=== PATIENT | female | born 1990 | race Caucasian/White ===

== ENCOUNTER 2017-02-27 19:45 | Emergency (ER) | payer OTHER ==
[~2017-02-27] VITALS: Ht 167.6 cm; Wt 89.0 kg
[~2017-02-27 19:45] MED LIST: SULF-154 PO; Z.0.NO CURRENT MEDS
[2017-02-27 19:51] VITALS: BP 100/64; PULSE 78; RESP 18; TEMP 98.4; O2SAT 98
[2017-02-27] MEDS ORDERED: TOPA50TA7 PO (20:12)
[2017-02-27] MEDS ORDERED: Anxiety Med (20:12)
[2017-02-27] MEDS ORDERED: BUTA1CAP PO (20:12)
[2017-02-27] MEDS ORDERED: Depression (20:12)
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
[2017-02-27] MEDS ORDERED: IBUP-232 PO (20:37)
[2017-02-27] MEDS ORDERED: ROBA750T PO (20:37)
== END 2017-02-27 20:50 | disposition home or self-care (01) ==
LOC: PHEFT 19:45
DX: S80.01XA Contusion of right knee, initial encounter (principal); S80.02XA Contusion of left knee, initial encounter; M25.572 Pain in left ankle and joints of left foot; F17.290 Nicotine dependence, other tobacco product, uncomplicated; V43.52XA Car driver injured in collision with other type car in traffic accident, initial encounter; Y93.89 Activity, other specified; Y92.410 Unspecified street and highway as the place of occurrence of the external cause; Y99.8 Other external cause status
CPT/HCPCS: 99283

== ENCOUNTER 2017-04-16 09:43 | Emergency (ER) | payer OTHER ==
[~2017-04-16] VITALS: Ht 167.6 cm; Wt 90.0 kg
[~2017-04-16 09:43] MED LIST changes: +Anxiety Med; +BUTA1CAP PO; +Depression; +IBUP-232 PO; +ROBA750T PO; -SULF-154 PO; +TOPA50TA7 PO; -Z.0.NO CURRENT MEDS
[2017-04-16 09:45] VITALS: BP 106/66; PULSE 96; RESP 20; TEMP 98.6; O2SAT 96
[2017-04-16] MEDS ORDERED: SODIUM CHLOR 0.9% 1000 ML INJ 1,000 ML IV ONE (10:17)
[2017-04-16] MEDS ORDERED: KETOROLAC TROMETHAMINE 30 MG/ML (IVP) VIAL IVP ONE (10:30)
[2017-04-16] MEDS ORDERED: PROCHLORPERAZINE INJ 10 MG/2 ML VIAL IVP ONE (10:30)
[2017-04-16] MEDS ORDERED: diphenhydrAMINE HCL 50 MG/ML VIAL IVP ONE (10:30)
--- NOTE | 2017-04-16 10:37 | PD ---
HPI Chief Complaint: Headache Time Seen by Provider: 10:13 Travel History International Travel<30 days: No Contact w/Intl Traveler<30days: No Traveled to known affect area: No History of Present Illness HPI This is a 26 year old female who has a history of migraines who presents to the emergency department with 3 days of a headache, constant, severe, gradual in onset that involves the back of her head and her neck. She says it gets worse when she bends over and she feels like she is going to pass out. She has thrown up and reports photophobia and phonophobia. She says this feels different from her other headaches and that its worse and is not going away. She takes his seizure medicine as migraine prophylaxis and she also takes Fioricet at home as well as sumatriptan. None of this is been helping. PFSH Past Medical History ADHD: Yes (patient.) Autoimmune Disease: No Blood Disorders: No Depression: Yes Cancer: No Cardiovascular Problems: No Diabetes: No Diminished Hearing: No Genitourinary: No Musculoskeletal: No Neurologic: No Psychiatric: Yes (Pt -Adjustment D/O.) Respiratory: No Migraines: No Seizures: No Sickle Cell Disease: No Thyroid Disease: No Ulcer: No ?: Not LMP: NOW Past Surgical History Appendectomy: No Cholecystectomy: No Social History Alcohol Use: Yes (age 13 yrs.) Tobacco Use: Yes (2 cigars a day) Substance Use: No Allergies-Medications (Allergen,Severity, Reaction): Coded Allergies: No Known Allergies (Verified , 02/27/17) Reported Meds & Prescriptions Reported Meds & Active Scripts Active Ibuprofen 600 Mg Tab 600 Mg PO Q8H PRN Robaxin (Methocarbamol) 750 Mg Tab 750 Mg PO Q8HR Reported [Anxiety Med] [Depression] Topamax (Topiramate) 50 Mg Tab 50 Mg PO BID Fioricet (Hmhpkiacke-Qbfpntmqkuxdu-Dhiuvqmm) 50-300-40 Mg Cap 1 Cap PO Q4H PRN Review of Systems Except as stated in HPI: all other systems reviewed are Neg Physical Exam Narrative GENERAL:Well appearing, no acute distress SKIN: Focused skin assessment warm and dry. HEAD: Atraumatic. Normocephalic. EYES: Pupils equal and round. No injection or drainage. ENT: Moist mucous membranes NECK: Trachea midline. CARDIOVASCULAR: Regular rate and rhythm. No murmur appreciated. RESPIRATORY: Clear to auscultation. Breath sounds equal bilaterally. GASTROINTESTINAL: Abdomen soft, non-tender, nondistended. MUSCULOSKELETAL: No obvious deformities. NEUROLOGICAL: Awake and alert. No obvious cranial nerve deficits. No dysarthria or aphasia. No upper or lower extremity drift. No upper extremity ataxia. Visual quintanilla intact. PSYCHIATRIC: Appropriate mood and affect; insight and judgment normal. Data Data Last Documented VS Vital Signs Date Time Temp Pulse Resp B/P Pulse Ox O2 Delivery O2 Flow Rate FiO2 04/16/17 09:45 98.6 96 20 106/66 96 Orders Ketorolac Inj (Toradol Inj) (04/16/17 10:30) Prochlorperazine Inj (Compazine Inj) (04/16/17 10:30) Diphenhydramine Inj (Benadryl Inj) (04/16/17 10:30) Sodium Chlor 0.9% 1000 Ml Inj (Ns 1000 M (04/16/17 10:17) Iv Access Insert/Monitor (04/16/17 10:17) Ct Brain W/O Iv Contrast(Rout) (04/16/17 ) Dexamethasone Inj (Decadron Inj) (04/16/17 11:15) MDM Medical Decision Making Medical Screen Exam Complete: Yes Emergency Medical Condition: Yes Interpretation(s) Afebrile, mild tachycardia, normotensive CT head: No intracranial hemorrhage Differential Diagnosis migraine headache, subarachnoid hemorrhage, intraparenchymal hemorrhage, tumor Narrative Course This is a 26-year-old female who has a history of migraines who presents to the emergency department with a headache that's been going on for several days, gradual in onset with no neurologic deficit. I doubt subarachnoid hemorrhage given the gradual onset of the headache and her history of migraines. She is normal neurologic exam. She was given Compazine, Benadryl and Toradol as well as IV fluids. She didn't fill 100% better so she was given Decadron and a CT was ordered which was reassuring. I think patient can be discharged home and she feels much better after the Decadron. Diagnosis Primary Impression: Migraine Qualified Code: G43.009 - Migraine without aura and without status migrainosus , not intractable Patient Instructions: General Instructions Additional Instructions: If you develop severe worsening headache, persistent vomiting, numbness, weakness, difficulty walking or difficulty talking return to the emergency department immediately. Sometimes in the emergency department we did not identify the cause of headaches. If you continued to have headaches it is very important that you followup with your primary care physician as you may need further testing with an MRI. Med/Other Pt SpecificInfo: Prescription(s) given Scripts Naproxen 500 Mg Sob390 Mg PO BID PRN (PAIN SCALE 4 TO 10) #20 TAB Prov:Bria Vang MD 04/16/17 Disposition: 01 DISCHARGE HOME Condition: Stable Bria Vang MD Apr 16, 2017 10:37
[2017-04-16] MEDS ORDERED: DEXAMETHASONE SOD PHOS 4 MG/ML VIAL IV PUSH ONE (11:15)
--- NOTE | 2017-04-16 12:09 | RADRPT ---
EXAM DATE/TIME: 04/16/2017 11:44 [facility] COMPARISON: No previous studies available for comparison. INDICATIONS : Cephalgia. RADIATION DOSE: 56.35 CTDIvol (mGy) MEDICAL HISTORY : Migraines. SURGICAL HISTORY : None. ENCOUNTER: Initial ACUITY: 4 - 6 days PAIN SCALE: 7/10 LOCATION: cranial TECHNIQUE: Multiple contiguous axial images were obtained of the head. Using automated exposure control and adj ustment of the mA and/or kV according to patient size, radiation dose was kept as low as reasonably a chievable to obtain optimal diagnostic quality images. DICOM format image data is available electro nically for review and comparison. FINDINGS: CEREBRUM: The ventricles are normal. No evidence of midline shift, mass lesion, hemorrhage or acute infarction . No extra-axial fluid collections are seen. POSTERIOR FOSSA: The cerebellum and brainstem are intact. The 4th ventricle is midline. The cerebellopontine angle i s unremarkable. EXTRACRANIAL: There is minimal mucoperiosteal thickening within the sphenoid sinus. Remaining visualized sinuses ar e clear. SKULL: The calvaria is intact. No evidence of skull fracture. CONCLUSION: No acute intracranial abnormality is identified. Kelby Kathleen MD on April 16, 2017 at 12:05 Board Certified Radiologist. This report was verified electronically.
[2017-04-16] MEDS ORDERED: NAPR500T PO (12:15)
== END 2017-04-16 16:07 | disposition home or self-care (01) ==
LOC: NEPD 09:43
DX: G43.009 Migraine without aura, not intractable, without status migrainosus (principal)
CPT/HCPCS: 70450; 96374; 96375; 99285; J0780; J1100; J1200; J1885; J7030

== ENCOUNTER 2017-06-19 18:17 | Emergency (ER) | payer OTHER ==
[~2017-06-19 18:17] MED LIST changes: +NAPR500T PO
[2017-06-19 18:21] VITALS: PULSE 77; RESP 20; TEMP 98.8
[2017-06-19] MEDS ORDERED: PRAZ1CAP PO (18:37)
[2017-06-19] MEDS ORDERED: FLUO-1 PO (18:37)
[2017-06-19] MEDS ORDERED: TOPA50TA7 PO (18:37)
[2017-06-19] MEDS ORDERED: TRAZ50TA12 PO (18:37)
[2017-06-19] MEDS ORDERED: PROM12.54 PO (18:37)
[2017-06-19] MEDS ORDERED: SUMA6INJ17 SQ (18:37)
[2017-06-19] MEDS ORDERED: SODIUM CHLOR 0.9% 1000 ML INJ 1,000 ML IV ONE (18:59)
[2017-06-19] MEDS ORDERED: diphenhydrAMINE HCL 50 MG/ML VIAL IVP ONE (19:00)
[2017-06-19] MEDS ORDERED: PROCHLORPERAZINE INJ 10 MG/2 ML VIAL IVP ONE (19:00)
[2017-06-19] MEDS ORDERED: KETOROLAC TROMETHAMINE 30 MG/ML (IVP) VIAL IVP ONE (19:00)
--- NOTE | 2017-06-19 19:02 | PD ---
HPI Chief Complaint: Headache Time Seen by Provider: 18:48 Travel History International Travel<30 days: No Contact w/Intl Traveler<30days: No Traveled to known affect area: No History of Present Illness HPI Patient is 26-year-old female presents emergency department for recurrent headache. Patient states she has a history of migraines. She states she's had a headache since yesterday afternoon the bitemporal in location. She's been taking her Imitrex injections at home without any relief. Patient states that usually when her headaches get bad Benadryl Compazine and Toradol seemed to relieve it. She states her headache is her normal migraine and there is nothing abnormal or unusual about her headache. No blurred vision no focalized weakness. No thunderclap presentation. Symptoms are moderate, stable. No nausea no vomiting no diarrhea no constipation. PFSH Past Medical History ADHD: Yes ( ) Autoimmune Disease: No Blood Disorders: No Depression: Yes Cancer: No Cardiovascular Problems: No Chemotherapy: Yes Diabetes: Yes Patient Takes Glucophage: No Diminished Hearing: No Genitourinary: No Musculoskeletal: No Neurologic: No Psychiatric: Yes (NIGHTMARES ) Respiratory: No Immunizations Current: Yes Migraines: Yes Seizures: No Sickle Cell Disease: No Thyroid Disease: No Ulcer: No Tetanus Vaccination: > 5 Years Influenza Vaccination: Yes ?: Not LMP: SATURDAY Past Surgical History Surgical History: No Previous Surgery Appendectomy: No Cholecystectomy: No Social History Alcohol Use: Yes (RARE) Tobacco Use: Yes (BACK AND MILDED) Substance Use: No Allergies-Medications (Allergen,Severity, Reaction): Coded Allergies: No Known Allergies (Verified , 06/19/17) Reported Meds & Prescriptions Reported Meds & Active Scripts Active Reported Promethazine (Promethazine HCl) 12.5 Mg Tab Unknown Dose PO Q4H PRN Prazosin (Prazosin HCl) 1 Mg Cap Unknown Dose PO DIRECTED Prozac (Fluoxetine HCl) 10 Mg Cap Unknown Dose PO DAILY Trazodone (Trazodone HCl) 50 Mg Tab 50 Mg PO HS Sumatriptan Inj (Sumatriptan Succinate) 6 Mg/0.5 Ml Inj 6 Mg SQ ONCE PRN May repeat dose in 1 hour if needed. Topamax (Topiramate) 50 Mg Tab 75 Mg PO BID Review of Systems Except as stated in HPI: all other systems reviewed are Neg Physical Exam Narrative GENERAL: Well-developed well-nourished in mild discomfort SKIN: Focused skin assessment warm/dry. HEAD: Atraumatic. Normocephalic. EYES: Pupils equal and round. No scleral icterus. No injection or drainage. ENT: No nasal bleeding or discharge. Mucous membranes pink and moist. NECK: Trachea midline. No JVD. CARDIOVASCULAR: Regular rate and rhythm. No murmur appreciated. RESPIRATORY: No accessory muscle use. Clear to auscultation. Breath sounds equal bilaterally. GASTROINTESTINAL: Abdomen soft, non-tender, nondistended. Hepatic and splenic margins not palpable. MUSCULOSKELETAL: No obvious deformities. No clubbing. No cyanosis. No edema. NEUROLOGICAL: Awake and alert. Cranial nerves II through XII are grossly intact and nonfocal, 5 out of 5 strength in all 4 extremities. Cervical testing negative, ambulates with even narrow based gait. PSYCHIATRIC: Appropriate mood and affect; insight and judgment normal. Data Data Last Documented VS Vital Signs Date Time Temp Pulse Resp B/P (MAP) Pulse Ox O2 Delivery O2 Flow Rate FiO2 06/19/17 20:51 06/19/17 20:12 88 16 98 Room Air 06/19/17 18:21 98.8 Orders Orders Iv Access Insert/Monitor (06/19/17 18:59) Ketorolac Inj (Toradol Inj) (06/19/17 19:00) Prochlorperazine Inj (Compazine Inj) (06/19/17 19:00) Diphenhydramine Inj (Benadryl Inj) (06/19/17 19:00) Sodium Chlor 0.9% 1000 Ml Inj (Ns 1000 M (06/19/17 18:59) MDM Medical Decision Making Medical Screen Exam Complete: Yes Emergency Medical Condition: Yes Differential Diagnosis recurrent headache, cluster headache, migraine headache. Narrative Course Patient roomed emergency department, she drove here but states that she will call a ride home. She was given Benadryl Compazine and Toradol, she had complete relief of headache and wished to go home. There is no indication further workup at this time. Discussed symptomatic management home follow-up the primary care physician or neurologist and return to ED criteria. Diagnosis Primary Impression: Recurrent headache Disposition: 01 DISCHARGE HOME Condition: Stable Luis Bradshaw MD Jun 19, 2017 19:01
[2017-06-19 20:12] VITALS: BP 103/65; PULSE 88; RESP 16; O2SAT 98
== END 2017-06-19 20:56 | disposition home or self-care (01) ==
LOC: PHED 18:17
DX: G44.89 Other headache syndrome (principal); E11.9 Type 2 diabetes mellitus without complications; F17.200 Nicotine dependence, unspecified, uncomplicated
CPT/HCPCS: 96361; 96374; 96375; 99284; J0780; J1200; J1885; J7030

== ENCOUNTER 2017-09-14 11:36 | Emergency (ER) | payer OTHER ==
[~2017-09-14] VITALS: Ht 167.6 cm; Wt 96.0 kg
[~2017-09-14 11:36] MED LIST changes: -Anxiety Med; -BUTA1CAP PO; -Depression; +FLUO-1 PO; -IBUP-232 PO; -NAPR500T PO; +PRAZ1CAP PO; +PROM12.54 PO; -ROBA750T PO; +SUMA6INJ17 SQ; +TRAZ50TA12 PO
[2017-09-14 11:39] VITALS: BP 116/70; PULSE 104; RESP 16; TEMP 98.5; O2SAT 96
--- NOTE | 2017-09-14 12:18 | PD ---
HPI Chief Complaint: Musculoskeletal Complaint Time Seen by Provider: 12:17 Travel History International Travel<30 days: No Contact w/Intl Traveler<30days: No Traveled to known affect area: No History of Present Illness HPI 27-year-old female presents to emergency department with acute on chronic low back pain for 2 days. 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 States that the pain radiates down her left leg. Pain is worse with movement and decreases with rest. Denies fever, chills, loss of bladder function, fever, chills, history of drug use. She is use ibuprofen and Flexeril without significant relief. She is presents treated with 2 shots and had good relief.Says she had a history of this previously. Patient states that her lower back pain started she was approximately 1 year ago. 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 PFSH Past Medical History ADHD: Yes ( ) Autoimmune Disease: No Blood Disorders: No Depression: Yes Cancer: No Cardiovascular Problems: No Chemotherapy: Yes Diabetes: Yes Patient Takes Glucophage: No Diminished Hearing: No Genitourinary: No Musculoskeletal: No Neurologic: No Psychiatric: Yes (NIGHTMARES ) Respiratory: No Immunizations Current: Yes Migraines: Yes Seizures: No Sickle Cell Disease: No Thyroid Disease: No Ulcer: No Tetanus Vaccination: Unknown Influenza Vaccination: No ?: Not LMP: 08/29/17 Past Surgical History Appendectomy: No Cholecystectomy: No Social History Alcohol Use: Yes (RARE) Tobacco Use: Yes (BACK AND MILDED) Substance Use: No Allergies-Medications (Allergen,Severity, Reaction): Coded Allergies: No Known Allergies (Verified Adverse Reaction, Unknown, 09/14/17) Reported Meds & Prescriptions Reported Meds & Active Scripts Active Prednisone 10 Mg Tab 10 Mg PO DAILY 7 Days Robaxin (Methocarbamol) 500 Mg Tab 500 Mg PO TID 5 Days Reported Promethazine (Promethazine HCl) 12.5 Mg Tab Unknown Dose PO Q4H PRN Prazosin (Prazosin HCl) 1 Mg Cap Unknown Dose PO DIRECTED Prozac (Fluoxetine HCl) 10 Mg Cap Unknown Dose PO DAILY Trazodone (Trazodone HCl) 50 Mg Tab 50 Mg PO HS Sumatriptan Inj (Sumatriptan Succinate) 6 Mg/0.5 Ml Inj 6 Mg SQ ONCE PRN May repeat dose in 1 hour if needed. Topamax (Topiramate) 50 Mg Tab 75 Mg PO BID Review of Systems Except as stated in HPI: all other systems reviewed are Neg Physical Exam Narrative GENERAL: Well-nourished, well-developed patient. SKIN: Focused skin assessment warm/dry. HEAD: Normocephalic. EYES: No scleral icterus. No injection or drainage. NECK: Supple, trachea midline. No JVD or lymphadenopathy. CARDIOVASCULAR: Regular rate and rhythm without murmurs, gallops, or rubs. RESPIRATORY: Breath sounds equal bilaterally. No accessory muscle use. MUSCULOSKELETAL: No cyanosis, or edema. BACK: No deformities or step-offs. No CVA tenderness. Neurovascularly intact Significant muscle spasms to the paraspinous muscles lumbar region. TTP to the SI joint L>R, mild TTP to the glut with muscle spasms. Data Data Last Documented VS Vital Signs Date Time Temp Pulse Resp B/P (MAP) Pulse Ox O2 Delivery O2 Flow Rate FiO2 09/14/17 11:39 98.5 104 16 116/70 (85) 96 Orders Orders Methylprednisolone So Succ Inj (Solumedr (09/14/17 12:30) Ketorolac Inj (Toradol Inj) (09/14/17 12:30) Ed Discharge Order (09/14/17 12:21) MDM Medical Decision Making Medical Screen Exam Complete: Yes Emergency Medical Condition: Yes Differential Diagnosis Sciatica, muscle spasms, lumbago Narrative Course 27-year-old female presents to emergency department with acute on chronic low back pain for 2 days. 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 States that the pain radiates down her left leg. Pain is worse with movement and decreases with rest. Denies fever, chills, loss of bladder function, fever, chills, history of drug use. She is use ibuprofen and Flexeril without significant relief. She is presents treated with 2 shots and had good relief.Says she had a history of this previously. Patient states that her lower back pain started she was approximately 1 year ago. 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 Vital signs stable. Physical exam- no red flag signs or symptoms, consistent with sciatica with muscle spasms Patient immensely Medrol and ketorolac in the emergency department today. Patient will be discharged with prednisone and Robaxin. Advised not to use Robaxin and Flexeril together. [facility] Return to the emergency department for worsening or persistent symptoms. Diagnosis Primary Impression: Sciatica Qualified Codes: M54.32 - Sciatica, left side Additional Impression: Muscle spasm Referrals: Primary Care Physician Departure Forms: Tests/Procedures, Work Release Enter return to work date: Sep 17, 2017 Additional Instructions: Perform light stretches of the lower back and legs, and alternate heat and ice packs. If you develop increased pain, weakness, fever, chills, or bowel or bladder issues, return to the ED for further treatment and evaluation. Follow up with your primary care physician in 2-3 days. Continue TENS unit. Do not use Robaxin with Flexeril or any other muscle laxity. Scripts Prednisone (Prednisone) 10 Mg Tab 10 MG PO DAILY for 7 Days, #7 TAB 0 Refills Prov: Anni Jimenez 09/14/17 Methocarbamol (Robaxin) 500 Mg Tab 500 MG PO TID for Muscle Spasm for 5 Days, TAB 0 Refills Prov: Anni Jimenez 09/14/17 Disposition: 01 DISCHARGE HOME Condition: Stable Anni Jimenez Sep 14, 2017 12:18
[2017-09-14] MEDS ORDERED: ROBA500T PO (12:20)
[2017-09-14] MEDS ORDERED: PRED10 PO (12:20)
[2017-09-14] MEDS ORDERED: KETOROLAC TROMETHAMINE 60 MG/2 ML (IM) VIAL IM ONE (12:30)
[2017-09-14] MEDS ORDERED: methylPREDNISolone SOD SUCC 125 MG/2 ML VIAL IM ONE (12:30)
== END 2017-09-14 12:48 | disposition home or self-care (01) ==
LOC: PHEFT 11:36
DX: M54.32 Sciatica, left side (principal); M62.838 Other muscle spasm; F90.9 Attention-deficit hyperactivity disorder, unspecified type; F32.9 Major depressive disorder, single episode, unspecified; E11.9 Type 2 diabetes mellitus without complications; F17.200 Nicotine dependence, unspecified, uncomplicated; Z79.899 Other long term (current) drug therapy
CPT/HCPCS: 96372; 99284; J1885; J2930